=== PATIENT | male | born 1985 | race African-American/Black ===

== ENCOUNTER 2020-06-22 16:41 | Emergency (ER) | payer SELFPAY ==
[~2020-06-22] VITALS: Ht 180.3 cm; Wt 95.7 kg
[2020-06-22 16:59] VITALS: BP 134/78
--- NOTE | 2020-06-22 17:36 | NUR ---
Patient discharged to home in stable condition. Written and verbal after care instructions given. Patient verbalizes understanding of instruction.
== END 2020-06-22 17:36 | disposition home or self-care (01) ==
LOC: ER 16:47
DX: B37.42 Candidal balanitis (principal); Z59.0 Homelessness